=== PATIENT | female | born 1970 | race Caucasian/White ===

== ENCOUNTER 2019-03-12 23:48 | Emergency (ER) | payer OTHER ==
[~2019-03-12] VITALS: Ht 162.6 cm; Wt 74.3 kg
[~2019-03-12 23:48] MED LIST: CETI10TA24 PO; FENO48TA16 PO; LEXAPRO10 MG PO; LIRA0.6P2 SQ; METF10007 PO; METF500T16 PO; METH20TA PO; NAPR-677 PO; PANT40TA5 PO; SALS750T10 PO
--- NOTE | 2019-03-13 00:01 | PHYS DOC ---
Past History Past Medical History: Diabetes, High Cholesterol, IBS, Kidney Stones, Other Additional Past Medical Histor: Narcolepsy Past Surgical History: Hysterectomy Alcohol Use: None Drug Use: None Adult General Chief Complaint Chief Complaint: OVERDOSE HPI HPI Patient is a 48-year-old female with a history of insomnia and narcolepsy, who presents to the emergency department for evaluation. She states that she accidentally took double the amount of her Xyrem, taking 9 g at once, as her first nightly dose, instead of 4.5 g, which she is supposed to take twice daily. She called EMS. She DENIES that she was doing this with the intention of self- harm. Other than being somnolent and difficult to arouse, she is having no other complaints. She denies any shortness of breath or any other pain. She does require tactile stimulation to arouse her, GCS is 13, but she is otherwise stable with normal vital signs and stable oxygenation on room air. Review of Systems Review of Systems Constitutional: Denies fever or chills [] Eyes: Denies change in visual acuity, redness, or eye pain [] HENT: Denies nasal congestion or sore throat [] Respiratory: Denies cough or shortness of breath [] Cardiovascular: The patient denies any shortness of breath, chest pain, palpitations, or orthopnea [] GI: Denies abdominal pain, nausea, vomiting, bloody stools or diarrhea [] : Denies dysuria or hematuria [] Musculoskeletal: Denies back pain or joint pain [] Integument: Denies rash or skin lesions [] Neurologic: Denies headache, focal weakness or sensory changes [] Endocrine: Denies polyuria or polydipsia [] All other systems were reviewed and found to be within normal limits, except as documented in this note. Allergies Allergies Allergies Coded Allergies Type Severity Reaction Last Updated Verified No Known Drug Allergies 01/18/15 No Physical Exam Physical Exam PHYSICAL EXAM: CONSTITUTIONAL: Well developed, well nourished HEAD: normocephalic, atraumatic EENT: PERRL, EOMI. Conjunctivae normal color, sclerae non-icteric; moist mucous membranes. NECK: Supple, non-tender; no meningismus. LUNGS: Lungs CTA, breathing even and unlabored. Normal air movement. HEART: Regular rate and rhythm, no murmur CHEST: No deformity; non-tender ABDOMEN: The abdomen is soft, and non-tender, no masses or bruits. EXTREM: Normal ROM; no deformity, no calf tenderness. Normal pulses palpable in all extremities. There is no pedal edema. SKIN: No rash; no diaphoresis NEURO: Somnolent, but arousable to tactile stimulus, but falls asleep rapidly. CN's grossly intact; strength grossly intact without focal deficit. BACK: No CVA TTP. EKG EKG [] Radiology/Procedures Radiology/Procedures [] Course & Med Decision Making Course & Med Decision Making I spoke with [facility], recommended symptomatic treatment and monitoring. We will monitor for bradycardia, which can be seen with GHB, EMS reported the blood sugar in the 200s. Patient does have a history of diabetes. She'll be monitored until she is spontaneously awake, and can ambulate, and safe for dis charge. 4:00 AM: Patient awake, ambulatory, ready for discharge, no complaints. Dragon Disclaimer Dragon Disclaimer This electronic medical record was generated, in whole or in part, using a voice recognition dictation system. Departure Departure: Impression: Primary Impression: Accidental overdose Disposition: 01 HOME, SELF-CARE Condition: STABLE Referrals: CATARINA HENLEY MD (PCP) Patient Instructions: Overdose, Accidental LIBORIO GARCÍA MD Mar 13, 2019 00:01
[2019-03-13 03:55] VITALS: BP 125/66
== END 2019-03-13 04:00 | disposition home or self-care (01) ==
LOC: ER 23:48
DX: T41.291A Poisoning by other general anesthetics, accidental (unintentional), initial encounter (principal); R40.0 Somnolence; E11.9 Type 2 diabetes mellitus without complications; E78.00 Pure hypercholesterolemia, unspecified; K58.9 Irritable bowel syndrome, unspecified; Z87.442 Personal history of urinary calculi; G47.00 Insomnia, unspecified; Y92.89 Other specified places as the place of occurrence of the external cause
CPT/HCPCS: 99284

== ENCOUNTER → 2019-10-26 | Outpatient (CLI) | payer OTHER ==
[~2019-10-26] MED LIST changes: -CETI10TA24 PO; +CETI10TA74 PO; -PANT40TA5 PO; +PANT40TA6 PO
--- NOTE | 2019-10-26 15:33 | RAD ---
EXAM: Right wrist, 3 views. HISTORY: Pain. COMPARISON: None. FINDINGS: 3 views of the right wrist are obtained. There is no fracture, dislocation or subluxation. IMPRESSION: No acute osseous finding. Electronically signed by: Yamini Alonso MD (10/26/2019 3:30 PM) [id number]
== END ==
LOC: RAD 13:55
PROVIDERS: ATTEND Physician Assistant
DX: M25.531 Pain in right wrist (principal)
CPT/HCPCS: 73110